=== PATIENT | female | born 1980 | race Caucasian/White ===

== ENCOUNTER 2017-02-28 13:46 | Emergency (ER) | payer OTHER ==
--- NOTE | 2017-02-28 15:16 | RAD ---
RIGHT FOOT 3 VIEWS: Date: 02/28/17 HISTORY: Right foot injury. FINDINGS: Lisfranc joint alignment is anatomic. Soft tissue swelling is apparent about the forefoot. No acute fracture, dislocation, or radiopaque foreign bodies are evident. IMPRESSION: No acute osseous abnormalities are demonstrated. POS: ALONSO
== END 2017-02-28 15:30 | disposition home or self-care (01) ==
LOC: NAV ERS 13:46
DX: S93.601A Unspecified sprain of right foot, initial encounter (principal); E66.9 Obesity, unspecified; F17.210 Nicotine dependence, cigarettes, uncomplicated

== ENCOUNTER 2018-05-07 13:20 | Inpatient (IN) | payer BC, OTHER ==
--- NOTE | 2018-05-07 14:32 | RAD ---
RIGHT FOOT 3 VIEWS: HISTORY: Right foot injury. COMPARISON: 02/28/2017. FINDINGS: Lisfranc joint alignment is anatomic. Plantar arch is maintained. Soft tissue swelling about the fo refoot. No acute fracture, dislocation, aggressive osseous erosions, or soft tissue gas are evident. IMPRESSION: Soft tissue swelling. No acute osseous abnormalities are demonstrated. POS: CAMILLA
--- NOTE | 2018-05-07 14:35 | RAD ---
RIGHT ANKLE 3 VIEWS: HISTORY: Right ankle injury. FINDINGS: Ankle mortise and talar dome are intact. Soft tissue swelling over the lateral malleolus. No acute fracture, dislocation, or metallic foreign bodies are apparent. IMPRESSION: Soft tissue swelling. No acute osseous abnormalities are demonstrated. POS: CAMILLA
[2018-05-07 14:41] LABS: #Basophils 0.2 thou/uL (0.0-0.2); #Eosinphils 0.3 thou/uL (0.0-0.7); #Lymphocytes 3.3 thou/uL (1.20-3.40); #Monocytes 1.1 thou/uL (0.11-0.59); #Neutrophils 5.8 thou/uL (1.40-6.50); %Basophils 1.6 % (0.0-1.0); %Eosinophils 2.4 % (0.0-10.0); %Lymphocytes 31.4 % (21.0-51.0); %Monocytes 10.2 % (0.0-10.0); %Neutrophils 54.5 % (42.0-75.0); Hemoglobin 12.8 g/dL (12.0-16.0); Mean Corpuscular HGB CONC 31.8 g/dL (32.0-36.0); Mean Corpuscular Hemoglobin 27.2 pg (27.0-31.0); Mean Corpuscular Volume 85.5 fL (78.0-98.0); Mean Platelet Volume 7.8 fL (7.4-10.4); Platelet Count 280 thou/uL (130-400); RBC Distribution Width 12.9 % (11.5-14.5); Red Blood Cell (RBC) Count 4.72 mill/uL (4.20-5.40); White Blood Cell (WBC) Count 10.6 thou/uL (4.8-10.8)
[2018-05-07 15:14] LABS: Anion Gap 13 mmol/L (10-20); BUN (Urea Nitrogen) 8 mg/dL (7.0-18.7); CRP (Inflammatory) 3.24 mg/dL (= or < 0.5); Calc. Creatinine Clearance 0 mL/min (70-130); Calcium 9.4 mg/dL (7.8-10.44); Carbon Dioxide 21 mmol/L (22-29); Chloride 109 mmol/L (98-107); Estimated GFR-MDRD Greater than 90; Glucose 119 mg/dL (70-105); Potassium 3.7 mmol/L (3.5-5.1); Sodium 139 mmol/L (136-145)
[2018-05-07] MEDS ORDERED: Acetaminophen 500 MG TAB ONE (15:34)
[2018-05-07] MEDS ORDERED: Sodium Chloride 0.9% 500 ML ONE (16:08)
[2018-05-07] MEDS ORDERED: Vancomycin HCl 500 MG VIAL ONE (16:08)
[2018-05-07] MEDS ORDERED: Sodium Chloride 0.9% 40 ML ONE (17:20)
[2018-05-07] MEDS ORDERED: Ondansetron HCl/PF 4 MG/2 ML Vial IVP PRN (17:27)
[2018-05-07] MEDS: Ibuprofen 800 MG TAB PO PRN (18:35)
[2018-05-07] MEDS ORDERED: Ondansetron ODT 4 MG TAB PO PRN (20:14)
[2018-05-07] MEDS ORDERED: Milk Of Magnesia 30 ML UDCUP PO PRN (20:14)
[2018-05-07] MEDS ORDERED: Loperamide HCl 2 MG CAP PO PRN (20:14)
[2018-05-07] MEDS ORDERED: Calcium Carbonate 500 MG ChewTAB PO PRN (20:14)
[2018-05-07] MEDS: Acetaminophen 325 MG TAB PO PRN (21:11)
--- NOTE | 2018-05-07 21:38 | HP ---
DATE OF ADMISSION: 05/07/2018 DATE OF HISTORY AND PHYSICAL: 05/07/2018 HISTORY OF PRESENT ILLNESS: Ms. Donald is a very pleasant 38-year-old white female that last y, where shaving her right leg when she gouged with her new razor. It did start bleeding quite a bit . She covered with a piece of paper, eventually stopped bleeding. She put Band-Aids with Neosporin over it, but yesterday she started having a little bit of pain and this morning, she had so much pain . She was unable to walk on it. She came to the emergency room and was found to have a significant cellulitis with a slightly elevated white count. She was admitted to observation for IV antibiotics by the ER physician. PAST MEDICAL HISTORY: Pretty much negative. She has no significant medical problems. PAST SURGICAL HISTORY: Reveals the patient has had a cholecystectomy, tubal ligation in 2008, and a right oophorectomy, salpingectomy secondary to some type of calcium on her ovary. FAMILY HISTORY: Reveals patient's mom has pulmonary fibrosis and COPD and she is 52 years old. The patient's dad is alive at 64. He has gallbladder problems, kidney stones, but no diabetes, etc. The patient has had 3 children, one of SIDS in 1996. The other are 18-year-old and 12-year-old other they are healthy. SOCIAL HISTORY: The patient takes no medication. ALLERGIES: Patient has no known medical allergies, but she states MORPHINE makes her feel bad. REVIEW OF SYSTEMS: Revealed this is a well-developed, well-nourished, white female complaining of ri ght ankle pain so much that she is unable to stand on it. Patient denies fever, chills, but only has significant pain. Patient denies any eye problems. Patient denies any hearing problems. Respirato ry law, patient denies cough, cold, congestion, or wheezing. Cardiovascular law, patient denies chest pain, rapid or irregular heart rate, palpitations, syncope, or edema. GI law, patient reports nausea, but denies vomiting or diarrhea. Denies constipation. law, patient denies frequency, urgency, dysuria, or hematuria. Musculoskeletal law, patient com plains of significant redness in that right ankle over the scratch, which is healing. She also has s ignificant tenderness with any touch. She also has significant swelling and some warmth. Skin: The patient describes cellulitis. PHYSICAL EXAMINATION: GENERAL: This is a well-developed, well-nourished, very pleasant white female in no apparent distres s at this time. HEENT: Reveals normocephalic, nontraumatic cranium. Pupils are equally round and reactive. Extraoc ular movements intact. Nose and throat are slightly dry. NECK: Supple without masses, nodes, or bruits. CHEST: Clear to auscultation. No rales, rhonchi, or wheezes are heard. HEART: Reveals a regular rate and rhythm without murmurs, gallops, or rubs. ABDOMEN: Obese, soft, nontender without organomegaly, normal bowel sounds are noted. No rebound or guarding is noted. : Deferred. EXTREMITIES: Reveal right ankle significantly red, swollen, and warm. Cellulitis is noted. Signifi cant tenderness with any touch is noted. Pulses are noted bilaterally. Left foot is completely norm al. ASSESSMENT: 1. Cellulitis. 2. Obesity. PLAN: The patient was seen in the emergency room and started on vancomycin 750 mg b.i.d. We will co elroy that at this time. Continue to follow the patient with lab work tomorrow morning.
[2018-05-08] MEDS: Ibuprofen 800 MG TAB PO PRN ×2 (04:03→11:55)
[2018-05-08] MEDS: Vancomycin HCl 750 MG in Sodium Chloride 0.9% 250 ML 250 ML IVPB SCH ×4 (04:03→17:01)
[2018-05-08 05:38] LABS: #Basophils 0.2 thou/uL (0.0-0.2); #Eosinphils 0.3 thou/uL (0.0-0.7); #Lymphocytes 3.1 thou/uL (1.20-3.40); #Monocytes 1.1 thou/uL (0.11-0.59); #Neutrophils 3.7 thou/uL (1.40-6.50); %Basophils 2.3 % (0.0-1.0); %Eosinophils 3.1 % (0.0-10.0); %Lymphocytes 37.4 % (21.0-51.0); %Monocytes 13.4 % (0.0-10.0); %Neutrophils 43.9 % (42.0-75.0); Hemoglobin 11.3 g/dL (12.0-16.0); Mean Corpuscular HGB CONC 31.4 g/dL (32.0-36.0); Mean Platelet Volume 7.9 fL (7.4-10.4); Platelet Count 234 thou/uL (130-400); RBC Distribution Width 13.1 % (11.5-14.5); Red Blood Cell (RBC) Count 4.17 mill/uL (4.20-5.40); White Blood Cell (WBC) Count 8.4 thou/uL (4.8-10.8)
[2018-05-08 05:50] LABS: Anion Gap 10 mmol/L (10-20); BUN (Urea Nitrogen) 11 mg/dL (7.0-18.7); Calc. Creatinine Clearance 0 mL/min (70-130); Calcium 8.6 mg/dL (7.8-10.44); Carbon Dioxide 24 mmol/L (22-29); Chloride 111 mmol/L (98-107); Estimated GFR-MDRD Greater than 90; Glucose 109 mg/dL (70-105); Potassium 4.2 mmol/L (3.5-5.1); Sodium 141 mmol/L (136-145)
[2018-05-08] MEDS: Acetaminophen 325 MG TAB PO PRN ×2 (08:33→16:00)
[2018-05-08] MEDS ORDERED: Acetaminophen 500 MG TAB PO SCH (10:00)
[2018-05-08] MEDS ORDERED: traMADol HCl 50 MG TAB PO SCH (10:00)
--- NOTE | 2018-05-08 13:49 | PRG ---
DATE OF SERVICE: 05/08/2018 SUBJECTIVE: Ms. Donald is doing well except for pain in her right ankle. She states that she is s till unable to put a whole lot of weight. She denies any fever or chills. The redness has improved. Her spouse is in the room. OBJECTIVE: VITAL SIGNS: She is afebrile, heart rate 76, respirations 18, oxygen saturation 97% on room air, blo od pressure 107/66. CARDIOVASCULAR SYSTEM: S1 and S2 plus. RESPIRATORY SYSTEM: Normal vesicular breath sounds. ABDOMEN: Soft, nontender, bowel sounds heard in all quadrants. EXTREMITIES: Without cyanosis or clubbing. Localized erythema over the right lateral malleolus. So me edema. No neurovascular compromise. LABORATORY VALUES: White count is 8.4, H and H is 11.3 and 33.8. Sodium 141, potassium 4.2, BUN and creatinine is 11 and 0.7. IMPRESSION: 1. Improving cellulitis. 2. Pain, right ankle. PLAN: 1. Add naproxen 500 mg b.i.d., first dose now. 2. Continue tramadol p.r.n. 3. Ice pack. 4. Anticipate switching her to oral antibiotics tomorrow. 5. Increase activity as tolerated. 6. Discussed with patient and spouse in detail. All questions answered.
[2018-05-08] MEDS ORDERED: Naproxen 500 MG TAB PO SCH (14:00)
[2018-05-08] MEDS: traMADol HCl 50 MG TAB PO PRN (16:01)
[2018-05-08] MEDS: Naproxen 500 MG TAB PO SCH (20:55)
[2018-05-09 03:31] LABS: Vancomycin, Trough 10.7 ug/mL
[2018-05-09] MEDS: Vancomycin HCl 1 GM in Sodium Chloride 0.9% 250 ML 250 ML IVPB SCH ×4 (04:23→16:23)
[2018-05-09] MEDS: Acetaminophen 325 MG TAB PO PRN ×3 (06:31→16:26)
[2018-05-09] MEDS: traMADol HCl 50 MG TAB PO PRN ×3 (06:32→17:37)
[2018-05-09] MEDS: Naproxen 500 MG TAB PO SCH ×2 (08:58→20:59)
[2018-05-09] MEDS ORDERED: Iopamidol 370 76% 100 ML VIAL ONE (09:00)
--- NOTE | 2018-05-09 13:28 | PRG ---
DATE OF SERVICE: 05/09/2018 SUBJECTIVE: Ms. Donald continues to have significant pain in her right ankle and foot. She states that she is unable to put any weight on it. It is pretty tender even to superficial touch. No warm th, no erythema, no fever or chills. The plan is to repeat labs along with a CRP, lactic acid, and g et a CT of her foot with contrast to rule out any abscess formation. She is tolerating her vancomyci n. No family at bedside. OBJECTIVE: VITAL SIGNS: She is afebrile, heart rate 79, respirations 20, oxygen saturation 96% on room air, blo od pressure 132/84. CARDIOVASCULAR SYSTEM: S1 and S2 plus. RESPIRATORY SYSTEM: Normal vesicular breath sounds. ABDOMEN: Soft, nontender, bowel sounds heard in all quadrants. EXTREMITIES: Without cyanosis or clubbing. Right foot shows some persistent edema. The erythema camarena s pretty much resolved. She does have a nice pack and she is excruciatingly tender to superficial pa lpation over the right foot. No neurovascular compromise. IMPRESSION: 1. Right foot cellulitis. Unable to rule out if there is an abscess. 2. History of right ankle injury in the remote past. PLAN: 1. Continue IV vancomycin. 2. Recheck CBC, CRP, lactic acid level, and CT of the right foot and ankle with contrast. 3. Continue pain medications. 4. Elevate legs. 5. Since she is not moving around, we will start her on Lovenox and also check a test.
[2018-05-09] MEDS ORDERED: Sodium Chloride 0.9% 250 ML 250 ML ONE (16:08)
[2018-05-09 16:13] LABS: #Basophils 0.1 thou/uL (0.0-0.2); #Eosinphils 0.3 thou/uL (0.0-0.7); #Neutrophils 5.9 thou/uL (1.40-6.50); %Basophils 1.3 % (0.0-1.0); %Eosinophils 2.7 % (0.0-10.0); %Lymphocytes 35.6 % (21.0-51.0); %Monocytes 8.9 % (0.0-10.0); %Neutrophils 51.6 % (42.0-75.0); Hemoglobin 11.7 g/dL (12.0-16.0); Mean Corpuscular HGB CONC 31.4 g/dL (32.0-36.0); Mean Corpuscular Hemoglobin 27.1 pg (27.0-31.0); Mean Corpuscular Volume 86.3 fL (78.0-98.0); Mean Platelet Volume 8.1 fL (7.4-10.4); Platelet Count 269 thou/uL (130-400); RBC Distribution Width 13.1 % (11.5-14.5); White Blood Cell (WBC) Count 11.3 thou/uL (4.8-10.8)
--- NOTE | 2018-05-09 16:53 | CT ---
CT OF RIGHT FOOT AND ANKLE PERFORMED WITH CONTRAST ENHANCEMENT: 05/09/18 HISTORY: Cellulitis with persistent pain. Evaluation for abscess. Bony mineralization appears normal. I do not see any evidence for osteomyelitis. Muscle compartments appear unremarkable. There are edema changes which are confined to the subcutaneous tissue most prono unced over the dorsum of the foot and lateral side of the ankle. There is no defined fluid collection or evidence for abscess. IMPRESSION: Cellulitis type changes of the ankle and foot region. POS: ALONSO
[2018-05-09 17:26] LABS: BHCG - Serum Negative (NEGATIVE); Pregs Control Bar Appear? YES (CONTROL BAR)
[2018-05-09 17:44] VITALS: BMI 44.8
[2018-05-09] MEDS ORDERED: Enoxaparin Sodium 40 MG/0.4 ML SYRINGE SC SCH (21:00)
[2018-05-10] MEDS: Vancomycin HCl 1 GM in Sodium Chloride 0.9% 250 ML 250 ML IVPB SCH ×2 (04:39→04:40)
[2018-05-10] MEDS: Naproxen 500 MG TAB PO SCH (08:18)
[2018-05-10] MEDS: Acetaminophen 325 MG TAB PO PRN ×2 (08:19→13:48)
[2018-05-10] MEDS: traMADol HCl 50 MG TAB PO PRN (08:19)
[2018-05-10 10:33] VITALS: BP 125/85; TEMP 98.2
--- NOTE | 2018-05-10 13:56 | DIS ---
DATE OF ADMISSION: 05/07/2018 DATE OF DISCHARGE: 05/10/2018 PRINCIPAL DIAGNOSIS: Resolving cellulitis, right lower extremity. SECONDARY DIAGNOSES: Improving pain. COMPLICATIONS: None. ADVERSE REACTIONS: None. PROCEDURES: CT scan with contrast of the right ankle and foot. CONSULTATIONS: None. HOSPITAL COURSE: The patient was admitted on 05/07/2018, with cellulitis of her right leg after goug e her skin with a new razor while shaving. Initial workup showed an elevated CRP and she was admitte d to the hospital for IV antibiotics. Her erythema and swelling started to improve, but she continue d to have significant pain. She was initially started on naproxen and tramadol. The next day her er ythema has pretty much resolved, but she continued to have significant pain, so I ordered a CT with I V contrast to rule out osteomyelitis or any localized abscess, also did a repeat C-reactive protein, lactic acid level, and a CBC. White count was slightly elevated at 11.3, but her lactic acid level w as normal at 0.9 and her CRP was down to 1.[address] also did not show any localized abscess or evidence for osteomyelitis or muscle involvement, just some superficial edema. She was switched t o oral antibiotics and advised that this is just going to take a little bit of time and she continues to take the naproxen, be careful with her activities. 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 Both the Keflex and the naproxen will be sent to [facility] in [facility]. She is to follow up with her primary care physician. If she does not have one, she can always call us if there are any issues or questions. PHYSICAL EXAMINATION: GENERAL: On the day of discharge, she is afebrile, heart rate is 80, respirations 18, oxygen saturat ion 98% on room air, blood pressure 123/85. CARDIOVASCULAR: S1, S2 plus. RESPIRATORY SYSTEM: Normal vesicular breath sounds. ABDOMEN: Soft, nontender, bowel sounds heard in all quadrants. EXTREMITIES: Without cyanosis or clubbing. Trace edema in the right foot. Erythema has pretty much resolved. No neurovascular compromise. LABORATORY DATA: As stated last three CBC showed a white count of 11.3 yesterday. H&H are 11.7 and 37.1. No bandemia. CRP was 1.38 yesterday, it was 3.24 on admission and lactic acid level was 0.9. DISCHARGE MEDICATIONS: 1. Keflex 500 mg p.o. t.i.d. for 7 more days. 2. Naproxen 500 mg p.o. b.i.d. with food for about 5-7 more days. Both prescriptions sent to [facility]. The patient is to call us with any ques tions or concerns. No family at bedside. Discussed with nursing.
[2018-05-10] MEDS ORDERED: Cephalexin 500 MG CAP PO SCH (15:00)
== END 2018-05-10 14:02 | disposition home or self-care (01) | DRG 603 ==
LOC: NAV ERS 13:20 → NAV ACUTE 16:55 → OBSVTOIN 20:14
PROVIDERS: ADMIT Family Medicine; ATTEND Family Medicine
DX: L03.115 Cellulitis of right lower limb (principal); Z68.42 Body mass index [BMI] 45.0-49.9, adult; E66.9 Obesity, unspecified; F17.210 Nicotine dependence, cigarettes, uncomplicated; Z90.49 Acquired absence of other specified parts of digestive tract; Z90.721 Acquired absence of ovaries, unilateral
CPT/HCPCS: 36415; 80048; 80202; 83605; 84703; 85025; 86140; 96365; J1650; J2405; J3370; J7050; Q0162

== ENCOUNTER 2022-05-20 14:40 | Emergency (ER) | payer SELFPAY | END 2022-05-20 15:31 | disposition home or self-care (01) | LOC: NAV ERS 14:40 | DX: S29.011A Strain of muscle and tendon of front wall of thorax, initial encounter (principal); J06.9 Acute upper respiratory infection, unspecified; X58.XXXA Exposure to other specified factors, initial encounter | CPT/HCPCS: 99283 ==

== ENCOUNTER 2022-08-05 10:23 | Emergency (ER) | payer BC, SELFPAY ==
[2022-08-05] MEDS ORDERED: Ketorolac Tromethamine 30 MG/ML VIAL ONE (10:51)
[2022-08-05] MEDS ORDERED: Sodium Chloride 0.9% 1,000 ML ONE (10:51)
[2022-08-05 11:50] LABS: #Basophils 0.2 thou/uL (0.0-0.2); #Eosinphils 0.3 thou/uL (0.0-0.7); #Lymphocytes 1.4 thou/uL (1.20-3.40); #Neutrophils 6.5 thou/uL (1.40-6.50); %Basophils 1.8 % (0.0-1.0); %Eosinophils 3.5 % (0.0-10.0); %Lymphocytes 15.2 % (21.0-51.0); %Monocytes 10.4 % (0.0-10.0); %Neutrophils 69.1 % (42.0-75.0); Hemoglobin 12.8 g/dL (12.0-16.0); Mean Corpuscular Hemoglobin 26.5 pg (27.0-31.0); Mean Corpuscular Volume 85.3 fl (78.0-98.0); Mean Platelet Volume 7.9 fL (7.4-10.4); Platelet Count 269 10x3/uL (130-400); RBC Distribution Width 14.4 % (11.5-14.5); Red Blood Cell (RBC) Count 4.84 mill/uL (4.20-5.40); White Blood Cell (WBC) Count 9.4 10x3/uL (4.8-10.8)
[2022-08-05] MEDS ORDERED: Ondansetron PF 4 MG/2 ML Vial ONE (12:32)
[2022-08-05 12:49] LABS: ALT (SGPT) 17 U/L (8-55); AST (SGOT) 21 U/L (5-34); Albumin 3.9 g/dL (3.5-5.0); Alkaline Phosphatase 79 U/L (40-110); Anion Gap 15 mmol/L (10-20); BUN (Urea Nitrogen) 8 mg/dL (7.0-18.7); Bilirubin, Total 0.3 mg/dL (0.2-1.2); Calc. Creatinine Clearance 0 mL/min (70-130); Calcium 8.6 mg/dL (7.8-10.44); Carbon Dioxide 20 mmol/L (22-29); Chloride 105 mmol/L (98-107); Estimated GFR 107; Globulin 3.2 g/dL (2.4-3.5); Glucose 104 mg/dL (70-105); Potassium 4.7 mmol/L (3.5-5.1); Protein, Total 7.1 g/dL (6.0-8.3); Sodium 135 mmol/L (136-145)
== END 2022-08-05 13:18 | disposition home or self-care (01) ==
LOC: NAV ERS 10:23
DX: B34.9 Viral infection, unspecified (principal); E66.9 Obesity, unspecified; Z87.891 Personal history of nicotine dependence
CPT/HCPCS: 71045; 80053; 83880; 84484; 85025; 87081; 87430; 87804; 93005; 96361; 96374; 96375; J1885; J2405; J7050

== ENCOUNTER 2024-01-03 18:16 | Emergency (ER) | payer BC, SELFPAY ==
[2024-01-03 19:22] LABS: Anion Gap 12 mmol/L (10-20); BUN (Urea Nitrogen) 12 mg/dL (7.0-18.7); Calc. Creatinine Clearance 0 mL/min (70-130); Calcium 9.1 mg/dL (7.8-10.44); Carbon Dioxide 25 mmol/L (22-29); Chloride 105 mmol/L (98-107); Estimated GFR 98; Glucose 109 mg/dL (70-105); Potassium 4.2 mmol/L (3.5-5.1); Sodium 138 mmol/L (136-145)
== END 2024-01-03 20:15 | disposition short-term general hospital (02) ==
LOC: NAV ERS 18:16
DX: R60.0 Localized edema (principal); R79.1 Abnormal coagulation profile; Z87.891 Personal history of nicotine dependence
CPT/HCPCS: 36415; 80048; 83880; 85379; 99284

== ENCOUNTER 2024-07-19 11:36 | Emergency (ER) | payer BC | END 2024-07-19 12:35 | disposition home or self-care (01) | LOC: NAV ERS 11:36 | DX: S80.01XA Contusion of right knee, initial encounter (principal); S93.401A Sprain of unspecified ligament of right ankle, initial encounter; S93.601A Unspecified sprain of right foot, initial encounter; K21.9 Gastro-esophageal reflux disease without esophagitis; Z87.891 Personal history of nicotine dependence; X50.1XXA Overexertion from prolonged static or awkward postures, initial encounter | CPT/HCPCS: 99283 ==